=== PATIENT | female | born 2000 | race Caucasian/White ===

== ENCOUNTER 2023-07-08 14:24 | Emergency (ER) | payer BC ==
[~2023-07-08] VITALS: Ht 157 cm; Wt 59.8 kg
--- NOTE | 2023-07-08 14:39 | ED General ---
General Stated Complaint: HEART RACING | POST STEROID SHOT Source of Information: Patient Exam Limitations: No Limitations History of Present Illness Date Seen by Provider: Jul 08, 2023 Time Seen by Provider: 14:24 Initial Comments 22-year-old female presents to the emergency department today for racing heart rate. She states that she had a steroid shot after she [facility]. She is on Adderall. She states walking across her front living room her watch was registering her heart at 154 bpm and she felt palpitations as well as tightness in her chest. No shortness of breath. No nausea vomiting or diaphoresis. She is never had similar symptoms in the past. All other systems reviewed and negative except documented per HPI. Voice recognition software was used to help create this chart Allergies and Home Medications Allergies Coded Allergies: No Known Drug Allergies (Unverified , 07/08/23) Patient Home Medication List Home Medication List Reviewed: Yes Review of Systems Review of Systems Constitutional: see HPI Past [id number] Hx Patient Social History Tobacco Use?: No Use of E-Cig and/or Vaping dev: No Substance use?: No Alcohol Use?: No Physical Exam Vital Signs Vital Signs - First Documented 07/08/23 14:30 Temp 36.0 Pulse 103 Resp 16 B/P (MAP) 145/100 (115) Pulse Ox 99 O2 Delivery Room Air Capillary Refill : Height, Weight, BMI Height: '" Weight: lbs. oz. kg; BMI Method: General Appearance: No Apparent Distress, WD/WN HEENT: Normal ENT Inspection, Pharynx Normal Neck: Full Range of Motion, Normal Inspection Respiratory: Chest Non Tender, Lungs Clear, Normal Breath Sounds, No Accessory Muscle Use Cardiovascular: No Murmur, Normal Peripheral Pulses, Tachycardia Gastrointestinal: No Organomegaly, Non Tender, Soft Back: Normal Inspection Extremity: Normal Capillary Refill, Non Tender, No Calf Tenderness Neurologic/Psychiatric: Alert, Oriented x3 Skin: Normal Color, Warm/Dry Progress/Results/Core Measures Suspected Sepsis SIRS Temperature: Pulse: Respiratory Rate: Blood Pressure / Mean: Results/Orders My Orders Orders - BRIAN STEPHENS DO Ekg Tracing (07/08/23 14:36) Vital Signs/I&O 07/08/23 14:30 Temp 36.0 Pulse 103 Resp 16 B/P (MAP) 145/100 (115) Pulse Ox 99 O2 Delivery Room Air Capillary Refill : ECG Comment Sinus rhythm with a rate of 81 bpm. Normal intervals. Normal axis. No ST or T wave abnormalities. No ectopy. No STEMI. Departure Communication (Admissions) Patient is hemodynamically stable. She is intermittently tachycardic, appears to be sinus tachycardia on bedside monitor. EKG obtained and shows sinus tachycardia of 81 bpm. Symptoms started after she received a steroid injection and she went ahead and took her Adderall. Is likely combination of the 2 medications. There is no indication for emergent medical condition at this time. She is discharged home in stable condition. Impression Primary Impression: Palpitations Disposition: HOME, SELF-CARE Condition: Stable Departure-Patient Inst. Referrals: NEISHA MARTIN (PCP/Family) Primary Care Physician Patient Instructions: Palpitations Add. Discharge Instructions: The electrical tracing of your heart is normal. Your symptoms are very likely related to the combination of Adderall and steroids. Increase your fluids at home and rest. Avoid caffeinated products, energy drinks or workout supplements for the next 24 hours. Return to the emergency department for any severe concer ns. Follow-up with your primary doctor for any nonemergent needs. BRIAN STEPHENS DO Jul 08, 2023 14:39
[2023-07-08 14:57] VITALS: BP 128/82
== END 2023-07-08 14:56 | disposition home or self-care (01) ==
LOC: ER 14:29
DX: R00.2 Palpitations (principal); R00.0 Tachycardia, unspecified
CPT/HCPCS: 93005